=== PATIENT | male | born 2005 | race Caucasian/White ===

== ENCOUNTER 2024-04-11 00:10 | Emergency (ER) | payer BC ==
[~2024-04-11] VITALS: Ht 180.3 cm; Wt 88.6 kg
[2024-04-11] MEDS ORDERED: CEPHALEXIN500 M1 PO (00:51)
[2024-04-11 01:00] VITALS: BP 125/71; PULSE 95; TEMP 98.3
== END 2024-04-11 01:00 | disposition home or self-care (01) ==
LOC: COL.ER 00:10
DX: S61.216A Laceration without foreign body of right little finger without damage to nail, initial encounter (principal); W26.8XXA Contact with other sharp object(s), not elsewhere classified, initial encounter